=== PATIENT | female | born 2000 | race Caucasian/White ===

== ENCOUNTER 2018-11-05 22:04 | Emergency (ER) | payer BC ==
[2018-11-05] MEDS ORDERED: NS 500 ML IV ONE (22:54)
--- NOTE | 2018-11-05 22:56 | EDPHY ---
H & P Stated Complaint: Dizzy, SOB after working out, lightheaded, Time Seen by Provider: 11/05/18 22:48 HPI/ROS: CHIEF COMPLAINT: palpitations, dyspnea HISTORY OF PRESENT ILLNESS: 17-year-old female via private vehicle. Patient states that she had completed work out at the health club, felt well during her work out, completed both cardiovascular and weightlifting without complaints of chest pain or dyspnea or syncope. She was walking back with a health club started feel palpitations, chest pain, started hyperventilating, noted carpal pedal spasms and subsequently transported to the ER. The time I evaluate her she states that she is feeling significant improvement. She exercises regularly and notes that she never experiences chest pain with exertion or needs to cease activity prematurely secondary to chest pain or unexpected dyspnea. She denies: Back pain, abdominal pain, headache, nausea, vomiting, recent illness, cough. PRIMARY CARE PROVIDER:[facility] REVIEW OF SYSTEMS: 10 systems reviewed and negative with the exception of the elements mentioned in the history of present illness PAST MEDICAL & SURGICAL HISTORY: No pertinent medical or surgical history SOCIAL HISTORY: Nonsmoker. No illicit drug use. No cocaine use. FAMILY HISTORY: No family history of VTE, sudden unexplained , premature coronary disease PHYSICAL EXAM (Prior to examination, patient consented to physical exam, hands were washed and my usual and customary physical exam procedures followed) 1) GENERAL: Well-developed, well-nourished, alert and oriented. Appears to be in no acute distress. 2) HEAD: Normocephalic, atraumatic 3) HEENT: Pupils equal, round, reactive to light bilaterally. Sclera anicteric. Nasopharynx, oropharynx, clear, no lesions. Moist Mucous membranes. 4) NECK: Full range of motion, no meningeal signs. 5) LUNGS: Clear auscultation bilaterally, no wheezes, no rhonchi, no retractions. 6) HEART: Regular rate and rhythm, no murmur, no heave, no gallop. 7) ABDOMEN: No guarding, no rebound, no focal tenderness, negative McBurney's, negative Moreno's, negative Rovsing's, negative peritoneal sign, 8) MUSCULOSKELETAL: Moving all extremities, no focal areas of tenderness, no obvious trauma. No peripheral edema or discoloration. Negative Homans no palpable cord 9) BACK: No CVA tenderness, no midline vertebral tenderness, no fluctuance, no step-off, no obvious trauma, no visual or palpable abnormality. 10) SKIN: No rash, no petechiae. 11) Psychiatric: Patient is oriented X 3, there is no agitation. DIFFERENTIAL DIAGNOSIS: In no particular order, including but not limited to myocardial ischemia, HOCM,, pulmonary embolus, chest wall pain, pleural inflammation and pulmonary infectious causes. - Personal History LMP (Females 10-55): Irregular Current Tetanus Diphtheria and Acellular Pertussis (TDAP): Yes - Medical/Surgical History Hx Asthma: Yes Hx Chronic Respiratory Disease: No Hx Diabetes: No Hx Cardiac Disease: No Hx Renal Disease: No Hx Cirrhosis: No Hx Alcoholism: No Hx HIV/AIDS: No Hx Splenectomy or Spleen Trauma: No Other PMH: Breathing trouble "seeing a doctor for it" - Social History Smoking Status: Never smoked Constitutional: Initial Vital Signs Temperature (C) 37.2 C 11/05/18 22:14 Heart Rate 83 11/05/18 22:14 Respiratory Rate 18 11/05/18 22:14 Blood Pressure 127/79 H 11/05/18 22:14 O2 Sat (%) 98 11/05/18 22:14 O2 Delivery Mode Room Air Allergies/Adverse Reactions: No Known Allergies Allergy (Unverified 11/05/18 22:17) Home Medications: Medication Instructions Recorded NK [No Known Home Meds] 11/05/18 Medical Decision Making - Diagnostics Imaging Results: Imaging Impressions Chest X-Ray 11/05/18 22:54 Impression: Normal chest x-ray. Images reviewed myself ED Course/Re-evaluation: 11:34 p.m.: Re-evaluation. Patient resting comfortably. Discussed with the patient her diagnostic studies which include negative troponin, sinus rhythm EKG , negative chest x-ray, negative D-dimer which I think adequately excludes pulmonary embolus in this patient with moderate pretest suspicion for pulmonary embolus. I do not think that CT angiography benefits outweigh the risks at this time therefore. She does informed at this time that she has seen a primary care provider for complaints of palpitations over the past several years. I recommended follow-up with Cardiology note put in a referral for Cardiology as well as she may necessitate outpatient Holter monitoring. At this time I think the patient can be safely discharged home. The patient feels comfortable being discharged home. Given my usual and customary return precautions. Patient feels comfortable being discharged. All questions and concerns addressed by myself. Patient given my usual and customary discharge precautions and instructions regarding their clinical impression. Care of patient under supervision of secondary supervising physician Dr Ni with whom I discussed case. - Data Points Laboratory Results: Laboratory Results 11/05/18 22:32 11/05/18 22:32 11/05/18 11/05/18 11/05/18 23:12 22:32 22:32 WBC RBC Hgb Hct MCV MCH MCHC RDW Plt Count MPV Neut % (Auto) Lymph % (Auto) [place] % (Auto) Eos % (Auto) Baso % (Auto) Nucleat RBC Rel Count Absolute Neuts (auto) Absolute Lymphs (auto) Absolute Monos (auto) Absolute Eos (auto) Absolute Basos (auto) Absolute Nucleated RBC Immature Gran % Immature Gran # D-Dimer Sodium 136 mEq/L mEq/L (135-145) Potassium 3.9 mEq/L mEq/L (3.5-5.2) Chloride 103 mEq/L mEq/L (97-110) Carbon Dioxide 22 mEq/l mEq/l (22-31) Anion Gap 11 mEq/L mEq/L (6-14) BUN 12 mg/dL mg/dL (7-23) Creatinine 0.9 mg/dL mg/dL (0.6-1.0) Estimated GFR > 60 Glucose 97 mg/dL mg/dL (70-100) Calcium 9.8 mg/dL mg/dL (8.5-10.4) POC Troponin I 0.00 ng/mL ng/mL (0.00-0.08) Beta HCG, Qual NEGATIVE 11/05/18 11/05/18 22:32 22:32 WBC 9.38 10^3/uL 10^3/uL (3.80-9.50) RBC 4.70 10^6/uL 10^6/uL (4.18-5.33) Hgb 14.7 g/dL g/dL (12.6-16.3) Hct 43.9 % % (38.0-47.0) MCV 93.4 fL fL (81.5-99.8) MCH 31.3 pg pg (27.9-34.1) MCHC 33.5 g/dL g/dL (32.4-36.7) RDW 11.7 % % (11.5-15.2) Plt Count 299 10^3/uL 10^3/uL (150-400) MPV 9.9 fL fL (8.7-11.7) Neut % (Auto) 60.8 % % (39.3-74.2) Lymph % (Auto) 29.7 % % (15.0-45.0) [place] % (Auto) 8.2 % % (4.5-13.0) Eos % (Auto) 0.7 % % (0.6-7.6) Baso % (Auto) 0.4 % % (0.3-1.7) Nucleat RBC Rel Count 0.0 % % (0.0-0.2) Absolute Neuts (auto) 5.69 10^3/uL 10^3/uL (1.70-6.50) Absolute Lymphs (auto) 2.79 10^3/uL 10^3/uL (1.00-3.00) Absolute Monos (auto) 0.77 10^3/uL 10^3/uL (0.30-0.80) Absolute Eos (auto) 0.07 10^3/uL 10^3/uL (0.03-0.40) Absolute Basos (auto) 0.04 10^3/uL 10^3/uL (0.02-0.10) Absolute Nucleated RBC 0.00 10^3/uL 10^3/uL (0-0.01) Immature Gran % 0.2 % % (0.0-1.1) Immature Gran # 0.02 10^3/uL 10^3/uL (0.00-0.10) D-Dimer 0.34 ug/mLFEU ug/mLFEU (0.00-0.50) Sodium Potassium Chloride Carbon Dioxide Anion Gap BUN Creatinine Estimated GFR Glucose Calcium POC Troponin I Beta HCG, Qual Medications Given: Discontinued Medications Sodium Chloride (Ns) 500 mls @ 1,000 mls/hr IV EDNOW ONE PRN Reason: Protocol Stop: 11/05/18 23:23 Last Admin: 11/05/18 23:03 Dose: 500 mls Point of Care Test Results: Chemistry 11/05/18 23:12 POC Troponin I 0.00 ng/mL ng/mL (0.00-0.08) Departure - Departure Disposition: Home, Routine, Self-Care Clinical Impression: Palpitations Condition: Good Instructions: Heart Palpitations (ED) Additional Instructions: Seek medical attention if you develop chest pain, if you develop new or worsening shortness of breath, or any other symptoms that concern you. Referrals: Jb Dai MD [Medical Doctor] - 2-3 days, call for appt. (Dr. Jb Dai is a custodian manager)
[2018-11-05 23:04] VITALS: BP 137/95
[2018-11-05 23:15] LABS: PLATELET COUNT 299 10^3/uL (150-400)
--- NOTE | 2018-11-08 07:53 | CPEKG ---
Test Reason : OPEN Blood Pressure : / mmHG Vent. Rate : 077 BPM Atrial Rate : 076 BPM P-R Int : 150 ms QRS Dur : 095 ms QT Int : 369 ms P-R-T Axes : 015 067 -01 degrees QTc Int : 418 ms Sinus rhythm Borderline T abnormalities, diffuse leads Confirmed by Gustavo Benton ([id number]) on 11/08/2018 7:53:27 AM Referred By: Gustavo Benton Confirmed By:Gustavo Benton
== END 2018-11-05 23:42 | disposition home or self-care (01) ==
DX: R00.2 Palpitations (principal); R06.00 Dyspnea, unspecified
CPT/HCPCS: 84484-ER